=== PATIENT | female | born 1995 | race Caucasian/White ===

== ENCOUNTER → 2021-05-02 17:42 | Outpatient (CLI) | payer OTHER, SELFPAY ==
--- NOTE | ~2021-05-02 | MR_ITS ---
EXAMINATION: MR lumbar spine wo con EXAM DATE: 05/02/2021 18:42 INDICATION: Low back pain. Left leg pain and numbness. TECHNIQUE: Multi-sequential, multiplanar MR images of the lumbar spine were obtained without contrast . Sagittal T1, T2, T2 fat saturation images. Axial T2 weighted images. There is no prior study for comparison. FINDINGS: There is 5 mm retrolisthesis L5 on S1 with mild to moderate loss of disc height. The verteb ral bodies are otherwise aligned. Vertebral body heights are maintained. Mild to moderate disc diseas e at T12-L1. The conus medullaris terminates at the L1-2 level and has normal signal intensity and mo rphology. There are no suspicious marrow signal abnormalities. Paraspinal soft tissue is unremarkabl e. Level by level evaluation: T12-L1: There is a mild diffuse disc bulge. Facet arthropathy: None. Neural foraminal stenosis: No stenosis. Central canal stenosis: No stenosis. L1-L2: Disc does not extend beyond the endplate margin. Facet arthropathy: None. Neural foraminal stenosis: No stenosis. Central canal stenosis: No stenosis. L2-L3: Disc does not extend beyond the endplate margin. Facet arthropathy: Minimal. Neural foraminal stenosis: No stenosis. Central canal stenosis: No stenosis. L3-L4: Disc does not extend beyond the endplate margin. Facet arthropathy: Mild. Neural foraminal stenosis: No stenosis. Central canal stenosis: No stenosis. L4-L5: Disc does not extend beyond the endplate margin. Facet arthropathy: Mild. Neural foraminal stenosis: No stenosis. Central canal stenosis: No stenosis. L5-S1: There is a mild to moderate diffuse disc bulge. Facet arthropathy: Mild. Neural foraminal stenosis: No stenosis. Central canal stenosis: No stenosis. IMPRESSION: 1. L5-S1 grade 1 retrolisthesis, mild to moderate disc disease. 2. Otherwise mild lumbar spondylosis. No stenosis. Reviewed, dictated and finalized at location B.
== END ==
DX: M54.5 Low back pain (principal); M51.26 Other intervertebral disc displacement, lumbar region; M43.17 Spondylolisthesis, lumbosacral region; M47.816 Spondylosis without myelopathy or radiculopathy, lumbar region
CPT/HCPCS: 72148

== ENCOUNTER 2025-06-01 19:27 | Emergency (ER) | payer OTHER, SELFPAY ==
[2025-06-01 19:44] VITALS: BP 129/83; PULSE 89; RESP 20; TEMP 37.2; O2SAT 100
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
== END 2025-06-01 20:06 | disposition home or self-care (01) ==
PROVIDERS: Emergency Provider Registered Nurse; PCP Nurse Practitioner Psychiatric/Mental Health
DX: T24.212A Burn of second degree of left thigh, initial encounter (principal); X19.XXXA Contact with other heat and hot substances, initial encounter
CPT/HCPCS: 99212; G0463